=== PATIENT | male | born 1950 | race Caucasian/White ===

== ENCOUNTER 2018-10-27 09:42 | Day surgery (SDC) | payer MEDICARE ==
--- NOTE | 2018-10-27 07:44 | HP ---
DATE OF SURGERY: 10/27/2018 ANTICIPATED PROCEDURE: Ventral hernia with mesh. HISTORY OF PRESENT ILLNESS: The patient has ventral hernia located above and to the left of the umbilicus, presents for repair. PAST MEDICAL HISTORY: ALLERGIES: NONE. MEDICATIONS: See list. PAST SURGICAL HISTORY: Stomach surgery. SOCIAL HISTORY: One pack per day. ETOH negative. FAMILY HISTORY: Negative. REVIEW OF SYSTEMS: Diabetes. PHYSICAL EXAMINATION: VITAL SIGNS: Normal. CHEST: Clear. COR: Regular. IMPRESSION: Ventral hernia. PLAN: Ventral herniorrhaphy.
[~2018-10-27 09:42] MED LIST: Lactated Ringers 1,000 ML IV ONE; Sensorcaine 0.25% 10 ML ONE
[2018-10-27] MEDS ORDERED: SUBLIMAZE 100 MCG/2 ML IV ONE (09:43)
[2018-10-27] MEDS ORDERED: BRIDION 200MG/2ML IV ONE (09:43)
[2018-10-27] MEDS ORDERED: Sodium Chloride 3 ML UD NEBULES IH ONE ×2 (09:43→13:22)
[2018-10-27] MEDS ORDERED: Decadron 4 MG INJ IV ONE (09:43)
[2018-10-27] MEDS ORDERED: Xopenex 1.25 MG/0.5 ML UD NEBULE IH ONE ×2 (09:43→13:21)
[2018-10-27] MEDS ORDERED: DIPRIVAN 200 MG/20 ML IV ONE (09:43)
[2018-10-27] MEDS ORDERED: Quelicin Fliptop 200 MG/10 ML IJ ONE (09:43)
[2018-10-27] MEDS ORDERED: Zofran 4 MG/2 ML VIAL IV ONE (09:43)
[2018-10-27] MEDS ORDERED: TORAdol 30 mg Injection IJ ONE (09:43)
[2018-10-27] MEDS ORDERED: Zemuron 100 MG/10 ML IJ ONE (09:43)
[2018-10-27] MEDS ORDERED: Lactated Ringers 1,000 ML IV ONE (10:38)
[2018-10-27] MEDS ORDERED: CEFAZOLIN 2 GM-D5W BAG** 2 GM/50 ML ML IV ONE (10:38)
[2018-10-27 10:54] LABS: Hematocrit 44.6 % (42-50); Hemoglobin 15.1 gm/dl (12.5-18.0); Mean Cell Volume 86.4 fl (78-100); Mean Corpuscular Hemoglobin 29.3 pg (26-32); Mean Corpuscular Hgb Concent. 33.9 g/dl (32-36); Platelet Count 129 K/mm3 (150-450); Red Blood Count 5.16 M/mm3 (4.1-5.6); Red Cell Distribution Width 16.8 % (11.5-14.0); White Blood Count 5.7 K/mm3 (4.0-10.5)
[2018-10-27 10:59] LABS: INR 1.04 (0.8-3.0); PROTIME 12.1 SECONDS (8.83-12.87)
[2018-10-27] MEDS ORDERED: Lactated Ringers 1,000 ML IV SCH (11:00)
[2018-10-27] MEDS ORDERED: CEFAZOLIN 2 GM-D5W BAG** 2 GM/50 ML ML IV SCH (11:00)
[2018-10-27 11:02] LABS: PTT 31.2 SECONDS (24.1-36.1)
[2018-10-27 11:05] LABS: ANION GAP 15.1 MEQ/L (5-15); BLOOD UREA NITROGEN 16 mg/dL (9-20); CHLORIDE 104 mmol/L (98-107); Calcium 9.5 mg/dL (8.4-10.2); Carbon Dioxide 24 mmol/L (22-30); Creatinine 1 1.22 mg/dL (0.66-1.25); Glucose 130 mg/dL (74-106); SODIUM 138 mmol/L (137-145)
[2018-10-27] MEDS ORDERED: KEFZOL 1 GM ONE (12:32)
[2018-10-27] MEDS ORDERED: SUBLIMAZE 100 MCG/2 ML ONE (13:17)
[2018-10-27] MEDS ORDERED: DILAUDID 2 MG INJECTION ONE (13:17)
--- NOTE | 2018-10-27 13:18 | OP ---
SURGERY DATE/TIME: 10/27/2018 1218 PREOPERATIVE DIAGNOSIS: Ventral abdominal hernia. POSTOPERATIVE DIAGNOSIS: Ventral hernia incarcerated. PROCEDURE: Ventral herniorrhaphy with mesh. SURGEON: Shyam Mcclelland M.D. ANESTHESIA: General. COMPLICATIONS: None. CONDITION: Stable. INDICATION: A patient with symptomatic ventral hernia. Marked preoperatively. DESCRIPTION OF PROCEDURE: Midline incision just one hair above the umbilicus in the midline and to the left of the midline. His ostomy is over in the left mid abdomen. He is taken to surgery. His ostomy was walled off. Routine prep and drape. Time out performed. The hernia had been marked preoperatively. It was visible in the prep field. Portion of midline incision was re-entered. The hernia was to the left and was a transverse defect 4 x 1.5 cm in size. It was freed up. The omentum was taken off the anterior abdominal wall. At this time Bicomponent mid-sized mesh was placed, pulled up and tacked with four quadrant sutures, four inner quadrant sutures for a total of eight sutures. It looked excellent. It was approximated well against the abdominal wall. Subcutaneous tissue closed with 3-0 Vicryl. Skin closed with 4-0 Vicryl. Sterile glue applied. The patient tolerated the procedure satisfactorily.
[2018-10-27 14:47] VITALS: O2SAT 93
[2018-10-27 15:09] VITALS: BP 113/73; PULSE 83
== END 2018-10-27 15:00 | disposition home or self-care (01) ==
LOC: SDC 09:42
PROVIDERS: ATTEND Surgery
DX: K43.6 Other and unspecified ventral hernia with obstruction, without gangrene (principal); E11.9 Type 2 diabetes mellitus without complications; Z79.899 Other long term (current) drug therapy; Z79.01 Long term (current) use of anticoagulants
CPT/HCPCS: 36415; 80048; 85027; 85610; 85730; 94640; C1781; J0330; J0690; J1100; J1170; J1885; J2405; J2704; J3010; A9270-GY

== ENCOUNTER 2018-12-22 10:30 | Day surgery (SDC) | payer MEDICARE ==
[2018-12-22] MEDS ORDERED: SUBLIMAZE 100 MCG/2 ML ONE ×3 (11:32→15:35)
[2018-12-22] MEDS ORDERED: DIPRIVAN 200 MG/20 ML IV ONE (11:32)
[2018-12-22] MEDS ORDERED: Versed 2 MG/2 ML Injection ONE (11:32)
[2018-12-22 11:58] LABS: ANION GAP 14.1 MEQ/L (5-15); Calcium 9.3 mg/dL (8.4-10.2); Creatinine 1 1.52 mg/dL (0.66-1.25); Potassium 4.6 mmol/L (3.5-5.1)
[2018-12-22] MEDS ORDERED: Lactated Ringers 1,000 ML IV SCH (12:00)
[2018-12-22] MEDS ORDERED: CEFAZOLIN 2 GM-D5W BAG** 2 GM/50 ML ML IV ONE (13:33)
[2018-12-22] MEDS ORDERED: MORPHINE SULFATE 10 MG/ML ONE (15:24)
--- NOTE | 2018-12-22 15:25 | OP ---
SURGERY DATE/TIME: 12/22/2018 1415 PREOPERATIVE DIAGNOSIS: Skin cancer right paranasal 2 cm. POSTOPERATIVE DIAGNOSIS: Skin cancer right paranasal 2 cm. PROCEDURE: Excision of a 2 cm skin cancer through a 4 x 1.5 cm elliptical excision with primary closure. SURGEON: Shyam Mcclelland M.D. ANESTHESIA: MAC. COMPLICATIONS: None. CONDITION: Stable. INDICATION: The patient has rapidly fungating mass over the last two months right by the corner of the nose. It is basically taking off at this time. He was immediately scheduled for surgery. DESCRIPTION OF PROCEDURE: He was taken to surgery. MAC anesthetic. Routine prep and drape. It was necessary to cut about 0.5 mm of the right lateral nose to get upper margin this margin with a 12. Elliptical excision had been marked with a lazy dog-leg S-incision grossly about 0.5 mm to 1 mm margin throughout. Hemostasis obtained with electrocautery. It was necessary to go deep taking all the subcu. It was taken off the muscle. A small amount of musculature is included in the lesion. It is unclear grossly whether it has totally clear margins or not, will await pathology. It was felt not appropriate to turn a flap at this time. It seemed like primary repair was quite acceptable although if margins are totally free a flap certainly could be refavored into this at a later date. It margins are positive radiation probably will come into play. It is very difficult to take any additional tissue.
[2018-12-22] MEDS ORDERED: DILAUDID 2 MG INJECTION ONE (15:58)
[2018-12-22] MEDS ORDERED: MORPHINE SULFATE 2 MG INJ IV PRN (16:46)
[2018-12-22] MEDS ORDERED: NORCO 5/325 MG PO PRN (16:47)
[2018-12-22] MEDS ORDERED: MORPHINE SULFATE 2 MG INJ ONE (16:49)
[2018-12-22 17:13] VITALS: BP 134/67; PULSE 80; O2SAT 90
== END 2018-12-22 17:34 | disposition home or self-care (01) ==
LOC: SDC 10:30
PROVIDERS: ATTEND Surgery
DX: C44.321 Squamous cell carcinoma of skin of nose (principal); I10 Essential (primary) hypertension; E11.9 Type 2 diabetes mellitus without complications; Z79.899 Other long term (current) drug therapy
CPT/HCPCS: 36415; 80048; 93005; J0690; J1170; J2250; J2270; J2704; J3010; A9270-GY